=== PATIENT | female | born 1955 | race Caucasian/White ===

== ENCOUNTER → 2019-02-20 14:03 | Outpatient (CLI) | payer OTHER, SELFPAY ==
--- NOTE | 2019-02-20 | DI.MG.S_ITS ---
BILATERAL DIGITAL SCREENING MAMMOGRAM 3D/2D WITH CAD: 02/20/2019 CLINICAL: Routine screening. Family history of breast cancer. Comparison is made to exams dated: 07/08/2015 mammogram, 03/08/2011 mammogram, 07/01/2009 mammogram, and 11/14/2006 mammogram - [facility]. There are scattered fibroglandular elements in both breasts. Current study was also evaluated with a Computer Aided Detection (CAD) system. There are benign vascular calcifications in both breasts. No significant masses, calcifications, or other findings are seen in either breast. There has been no significant interval change. IMPRESSION: There is no mammographic evidence of malignancy. A 1 year screening mammogram is recommended. This exam was interpreted at Station ID: [id number]. NOTE: For mammograms, a report in lay terms will be sent to the patient. Approximately 15% of breast malignancies will not be visualized mammographically. In the management of a palpable breast mass, a negative mammogram must not discourage biopsy of a clinically suspicious lesion. Electronically Signed By: Ming mejia/windy:02/21/2019 10:31:35 letter sent: Normal Exam ACR BI-RADS Category 2: Benign Finding(s) 3342F
== END ==
PROVIDERS: PCP Internal Medicine; Visit Provider Internal Medicine
DX: Z12.31 Encounter for screening mammogram for malignant neoplasm of breast (principal); Z80.3 Family history of malignant neoplasm of breast; M81.0 Age-related osteoporosis without current pathological fracture; M85.88 Other specified disorders of bone density and structure, other site
CPT/HCPCS: 77063; 77067; 77080

== ENCOUNTER 2019-08-17 13:57 | Emergency (ER) | payer OTHER, SELFPAY ==
[2019-08-17 14:05] VITALS: BP 179/82; PULSE 83; RESP 24; TEMP 36.7; O2SAT 95
[2019-08-17] MEDS: ONDANSETRON 4 MG/2 ML INJ IV (14:22)
[2019-08-17] MEDS: KETOROLAC 60 MG/2 ML VIAL 30 MG IV (14:22)
[2019-08-17] MEDS: SODIUM CHLORIDE 0.9% 1,000 ML 1000 ML IV ×2 (14:22→16:51)
[2019-08-17 14:25] LABS: Add Manual Diff / Slide Review NO; Basophils Absolute Auto 0 /uL (0-100); Basophils Percent Auto 0.2 % (0-2); Eosinophils Absolute Auto 0 /uL (0-450); Eosinophils Percent Auto 0.2 % (2-4); Hematocrit 33.9 % (36-46); Hemoglobin 11.7 g/dL (12.0-16.0); Lymphocytes Absolute Auto 1000 /uL (1100-4500); Mean Corpuscular HGB Conc 34.5 % (30-36); Mean Corpuscular Hemoglobin 28.2 PG (26-34); Mean Corpuscular Volume 81.8 fL (80-100); Monocytes Absolute Auto 400 /uL (0-900); Neutrophils Absolute Auto 8300 /uL (1500-7000); Neutrophils Percent Auto 85.6 % (50-75); Platelet Count 311 X10^3/uL (150-400); Red Blood Cell Count 4.15 X10^6/uL (4.0-5.2); Red Cell Distribution Width 13.2 % (11.6-14.8); White Blood Cell Count 9.7 X10^3/uL (4.5-11.0)
[2019-08-17 14:39] LABS: INR 1.1 (0.9-1.3); Prothrombin Time 13.1 SECONDS (10.1-12.7)
[2019-08-17 14:41] LABS: PTT Partial Thromboplastin Tim 31 SECONDS (26.4-36.2)
[2019-08-17 14:43] LABS: Alanine Aminotransferase 31 IU/L (<35); Albumin 4.9 g/dL (3.5-5.0); Albumin Globulin Ratio 1.3 (1.0-2.8); Alkaline Phosphatase 38 U/L (38-126); Aspartate Aminotransferase 39 IU/L (14-36); BUN Creatinine Ratio 24.3 (6-22); Bilirubin Total 0.7 mg/dL (0.2-1.3); Blood Urea Nitrogen 17 mg/dL (7-17); Calcium 10.1 mg/dL (8.4-10.2); Carbon Dioxide 24 mmol/L (22-32); Chloride 103 mmol/L (98-107); Estimated Glomerular Filt Rate > 60.0 mL/min (>60); Globulin 3.9 g/dL (1.7-4.1); Glucose 139 mg/dL (80-110); Lipase 55 U/L (23-300); Potassium 4.2 mmol/L (3.4-5.1); Sodium 140 mmol/L (137-145); Total Protein 8.8 g/dL (6.3-8.2)
[2019-08-17 14:51] VITALS: BP 159/78; PULSE 78; RESP 14; O2SAT 99
[2019-08-17 14:55] LABS: HEMOLYSIS 68 (0-50)
--- NOTE | 2019-08-17 14:58 | ED.ABDPAIN ---
HPI - Abdominal Pain General Chief Complaint: Abdominal Pain Stated Complaint: stomach pains puking up and blood in urine yesturd Time Seen by Provider: 08/17/19 14:53 Source: patient Mode of arrival: Ambulatory Limitations: no limitations History of Present Illness HPI narrative: Patient is a 63-year-old female who presents with severe left flank pain. She said she started to notice it about a week ago it comes and goes she is extremely nauseous to radiating down to her left groin. Today the pain was quite bad. She has not had any fever or chills. She has noted some blood in her urine. MD complaint: flank pain Onset (ago): day(s) Pain Consistency: intermittent Severity: moderate Related Data Home Medications Medication Instructions Recorded Confirmed Calcium Tab 1 tab PO BID 08/17/19 08/17/19 Fish Oil 1 cap PO DAILY 08/17/19 08/17/19 Vitamin D3 1 cap PO DAILY 08/17/19 08/17/19 atorvastatin 10 mg PO DAILY 08/17/19 08/17/19 multivitamin 1 tab PO DAILY 08/17/19 08/17/19 turmeric 1 tab PO DAILY 08/17/19 08/17/19 Previous Rx's Medication Instructions Recorded Zostavax (PF) 0.5 ml SQ ONCE #0.5 ml 11/06/16 hydrocodone-acetaminophen 1 tab PO Q6H PRN #10 tab 08/17/19 ondansetron 4 mg PO Q8H PRN #10 tab 08/17/19 sulfamethoxazole-trimethoprim 1 tab PO BID 5 Days #10 tab 08/17/19 [Bactrim DS] tamsulosin [Flomax] 0.4 mg PO DAILY #7 cap 08/17/19 Allergies Allergy/AdvReac Type Severity Reaction Status Date / Time No Known Drug Allergies Allergy Verified 08/17/19 14:08 Review of Systems Review of Systems Narrative: GENERAL: Denies chills, fatigue, malaise, fever, sweats, travel HEENT: Denies sinus pain, ear pain, sore throat, difficulty swallowing, neck pain RESPIRATORY: Denies dyspnea, cough, wheezing, hemoptysis, sputum. CARDIOVASCULAR: Denies chest pain, palpitations, orthopnea, edema GASTROINTESTINAL: Denies nausea, vomiting, abdominal pain, diarrhea, constipation, melena. : See HPI MUSCULOSKELETAL: Denies weakness, joint pain, or bony pain SKIN: No rash, no erythema, no pruritus NEUROLOGIC: Denies weakness, dizziness, headache, numbness, change in speech, confusion PSYCHIATRIC: No concerning psychosocial issues. 12 point review of systems is negative except for those stated above and HPI Patient History Medical History History of hyperlipidemia (06/07/15) Social History Smoking Status: Former smoker Smoking Status: Former smoker alcohol intake frequency: 0-2 drinks per day Substance Use Type: does not use Exam Initial Vital Signs Initial Vital Signs: Vital Signs Temperature 98.1 F 08/17/19 14:05 Pulse Rate 83 08/17/19 14:05 Respiratory Rate 24 08/17/19 14:05 Blood Pressure 179/82 H 08/17/19 14:05 Pulse Oximetry 95 08/17/19 14:05 GENERAL: Well-appearing, well-nourished and in no acute distress. HEENT: Head atraumatic,EOMI, pupils reactive, face symmetric, moist mucous membranes CARDIOVASCULAR: Regular rate and rhythm without murmurs, rubs or gallops. RESPIRATORY: Breath sounds equal bilaterally, no wheezes rales or rhonchi. ABDOMEN: Soft, left lower quadrant pain no guarding or rebound : Pain meds mild left CVA tenderness EXTREMITIES: Normal range of motion, no clubbing or edema. Neurovascularly intact NEUROLOGICAL: Alert and oriented x4.Normal gait and speech. Cranial nerves II through XII grossly intact. SKIN: Warm, dry, no laceration, no petechiae, no rashes or lesions. Course Orders Ordered: ED Orders 08/17/19 14:18 Complete Blood Count AUTO DIFF Stat Comprehensive Metabolic Panel Stat Lipase Stat Partial Thromboplastin Time Stat Prothrombin Time INR Stat 08/17/19 15:07 CT kidney ureter bladder (KUB) Stat 08/17/19 16:45 Urine Culture Stat Urine Microscopic Stat Discontinued Medications Acetaminophen (Tylenol) 975 mg PO NOW ONE Stop: 08/17/19 17:48 Last Admin: 08/17/19 17:49 Dose: 975 mg Documented by: MESSI Sodium Chloride (Normal Saline 0.9%) 1,000 mls @ 1,000 mls/hr IV BOLUS ONE Stop: 08/17/19 15:09 Last Infusion: 08/17/19 15:51 Dose: 0 mls/hr Documented by: Admin: 08/17/19 14:22 Dose: 1,000 mls/hr Documented by: MESSI Sodium Chloride (Normal Saline 0.9%) 1,000 mls @ 1,000 mls/hr IV BOLUS ONE Stop: 08/17/19 17:13 Last Infusion: 08/17/19 18:24 Dose: 0 mls/hr Documented by: Admin: 08/17/19 16:51 Dose: 1,000 mls/hr Documented by: MESSI Ketorolac Tromethamine (Toradol) 30 mg IV NOW ONE Stop: 08/17/19 14:11 Last Admin: 08/17/19 14:22 Dose: 30 mg Documented by: MESSI Ondansetron HCl (Zofran) 4 mg IV NOW ONE Stop: 08/17/19 14:10 Last Admin: 08/17/19 14:22 Dose: 4 mg Documented by: MESSI Consultations Consultation #1: Manav Time: 16:43 Vital Signs Vital signs: Vital Signs - 8 hr 08/17/19 14:05 08/17/19 14:51 08/17/19 16:30 Temperature 98.1 F Pulse Rate 83 78 71 Respiratory Rate 24 14 12 Blood Pressure 179/82 H Blood Pressure [Left Arm] 159/78 H 146/81 H Pulse Oximetry 95 99 98 08/17/19 17:37 08/17/19 18:45 Temperature Pulse Rate 64 68 Respiratory Rate 18 18 Blood Pressure 141/68 H Blood Pressure [Left Arm] 146/55 H Pulse Oximetry 98 100 MDM - Abdominal Pain Lab Data Attestation: I reviewed the patient's lab results. Result diagrams: 08/17/19 14:18 08/17/19 14:18 Labs: Lab Results 08/17/19 08/17/19 08/17/19 Range/Units 14:18 14:18 14:18 WBC 9.7 (4.5-11.0) X10^3/uL RBC 4.15 (4.0-5.2) X10^6/uL Hgb 11.7 L (12.0-16.0) g/dL Hct 33.9 L (36-46) % MCV 81.8 (80-100) fL MCH 28.2 (26-34) PG MCHC 34.5 (30-36) % RDW 13.2 (11.6-14.8) % Plt Count 311 (150-400) X10^3/uL Neut % (Auto) 85.6 H (50-75) % Lymph % (Auto) 10.0 L (25-40) % [place] % (Auto) 4.0 (3-14) % Eos % (Auto) 0.2 L (2-4) % Baso % (Auto) 0.2 (0-2) % Neut # (Auto) 8300 H (5153-7013) /uL Lymph # (Auto) 1000 L (3724-8692) /uL [place] # (Auto) 400 (0-900) /uL Eos # (Auto) 0 (0-450) /uL Baso # (Auto) 0 (0-100) /uL PT 13.1 H (10.1-12.7) SECONDS INR 1.1 (0.9-1.3) APTT 31 (26.4-36.2) SECONDS Sodium 140 (137-145) mmol/L Potassium 4.2 (3.4-5.1) mmol/L Chloride 103 (98-107) mmol/L Carbon Dioxide 24 (22-32) mmol/L BUN 17 (7-17) mg/dL Creatinine 0.70 (0.52-1.04) mg/dL Estimated GFR > 60.0 (>60) mL/min BUN/Creatinine Ratio 24.3 H (6-22) Glucose 139 H (80-110) mg/dL Calcium 10.1 (8.4-10.2) mg/dL Total Bilirubin 0.7 (0.2-1.3) mg/dL AST 39 H (14-36) IU/L ALT 31 (<35) IU/L Alkaline Phosphatase 38 (38-126) U/L Total Protein 8.8 H (6.3-8.2) g/dL Albumin 4.9 (3.5-5.0) g/dL Globulin 3.9 (1.7-4.1) g/dL Albumin/Globulin Ratio 1.3 (1.0-2.8) Lipase 55 (23-300) U/L Urine RBC (0-5/HPF) Urine WBC (0-5/HPF) Ur Squamous Epith Cells (0-5/HPF) Calcium Oxalate Crystal Amorphous Sediment Urine Bacteria (None) Ur Culture Indicated? 08/17/19 Range/Units 16:45 WBC (4.5-11.0) X10^3/uL RBC (4.0-5.2) X10^6/uL Hgb (12.0-16.0) g/dL Hct (36-46) % MCV (80-100) fL MCH (26-34) PG MCHC (30-36) % RDW (11.6-14.8) % Plt Count (150-400) X10^3/uL Neut % (Auto) (50-75) % Lymph % (Auto) (25-40) % [place] % (Auto) (3-14) % Eos % (Auto) (2-4) % Baso % (Auto) (0-2) % Neut # (Auto) (6338-7843) /uL Lymph # (Auto) (8402-6885) /uL [place] # (Auto) (0-900) /uL Eos # (Auto) (0-450) /uL Baso # (Auto) (0-100) /uL PT (10.1-12.7) SECONDS INR (0.9-1.3) APTT (26.4-36.2) SECONDS Sodium (137-145) mmol/L Potassium (3.4-5.1) mmol/L Chloride (98-107) mmol/L Carbon Dioxide (22-32) mmol/L BUN (7-17) mg/dL Creatinine (0.52-1.04) mg/dL Estimated GFR (>60) mL/min BUN/Creatinine Ratio (6-22) Glucose (80-110) mg/dL Calcium (8.4-10.2) mg/dL Total Bilirubin (0.2-1.3) mg/dL AST (14-36) IU/L ALT (<35) IU/L Alkaline Phosphatase (38-126) U/L Total Protein (6.3-8.2) g/dL Albumin (3.5-5.0) g/dL Globulin (1.7-4.1) g/dL Albumin/Globulin Ratio (1.0-2.8) Lipase (23-300) U/L Urine RBC 10-30/hpf H (0-5/HPF) Urine WBC 5-10/hpf H (0-5/HPF) Ur Squamous Epith Cells 1-5 /hpf (0-5/HPF) Calcium Oxalate Crystal Few H Amorphous Sediment 2+ Urine Bacteria Few (2-10) H (None) Ur Culture Indicated? Specimen cultured Point of care testing: Urine Dip Bedside Urine Glucose Negative Bedside Urine Bilirubin - Negative Bedside Urine Ketone ++ 40 Urine Specific [place] 1.015 Bedside Urine Occult Blood +++ Bedside Urine pH 7.0 Bedside Urine Protein + 30 Bedside Urine Urobilinogen - Negative Bedside Urine Nitrite - Negative Bedside Urine Leukocytes ++ [address] scan - abdomen/pelvis: Radiologist's Impression: PROCEDURE: CT KIDNEY URETER BLADDER (KUB) INDICATIONS: left flank pain TECHNIQUE: Noncontrast 5 mm thick sections acquired from the diaphragms to the symphysis. 5 mm thick coronal and sagittal reformats were then performed. For radiation dose reduction, the following was used: automated exposure control, adjustment of mA and/or kV according to patient size. COMPARISON: [facility], , CT IVP, 02/15/2006, 10:46. FINDINGS: Image quality: Excellent. Lung bases: Lung bases are clear. Heart size is normal. Urinary system: Right kidney: No stone or hydronephrosis. Right ureter: Unremarkable. Left kidney: Hyperdensity in lower pole renal calyces is consistent with acute hemorrhage. Cannot exclude underlying lesion. Mild to moderate left hydronephrosis. Inflammatory change in the surrounding perirenal fat. Left ureter: Dilated to the level of the distal ureter above the ureterovesical junction. There is an obstructing 0.6 x 1.1 cm distal ureteral stone. Bladder has a thin wall without bladder stones. Other solid organs: Liver is normal in size. Gallbladder is unremarkable. Pancreas is normal in contours. Spleen is normal in size. Benign unchanged multiseptated partially calcified cystic lesion of the spleen. No adrenal nodules. Peritoneum and bowel: Unenhanced bowel loops demonstrate normal wall thickness and caliber. No free fluid or air. Sigmoid diverticulosis without evidence of diverticulitis. Nodes and vessels: No retroperitoneal or mesenteric adenopathy by size criteria. Aorta and inferior vena cava are normal in caliber. Abdominal wall: No ventral hernias. Pelvis: No free pelvic fluid. No inguinal hernias or adenopathy. Bones: No suspicious bony lesions. No vertebral body compression fractures. IMPRESSION: 1. A 6 x 11 mm stone obstructs the distal right ureter resulting in mild to moderate right hydronephrosis. 2. Products of hemorrhage in right lower pole calyces. 3. Sigmoid diverticulosis. Dictated by: Stephon Coburn M.D. on 08/17/2019 at 15:55 MDM Narrative Medical decision making narrative: Patient evaluated after Toradol pain seemed to improve. Patient is found to have large kidney stone. She actually has no sign of renal failure creatinine is within normal limits she has no leukocytosis. Pain remained controlled with just Toradol I will put her on antibiotics pain medication and nausea medication spoken with her PCP who agreed to arrange the out patient follow-up. I discussed all findings with the patient and , Education has been performed regarding treatment plan, diagnosis, warning signs and symptoms and all concerns have been addressed. Verbally agree with and understood all of the above. Discharge Plan Departure Patient Disposition: Home Clinical Impression: Kidney stone on left side Discharge Date/Time: 08/17/19 18:46 Instructions: DI for Kidney Stones Activity Restrictions/Additional Instructions: *You have been diagnosed with left-sided kidney stone *What to do: You will need to follow-up with urology it is unlikely that you will pass this kidney stone on your own. I have discussed this with the on-call primary care provider who was putting in consultation for you. *Continue to take medications as directed Dulac 1 tablet every 6 hours if needed for severe pain Ibuprofen 800 mg every 8 hours if needed for bfwe-iu-gatjwmol pain Zofran 4 mg every 8 hours if needed for nausea or vomiting Bactrim 1 tablet twice a day for 7 days Flomax 1 tablet once a day to help passage of stone *Follow up with your primary care provider in 2-3 days *Return to ER if you should have increasing pain and fevers persistent vomiting inability to tolerate fluids or any new, worsening or concerning symptoms CONTROLLED SUBSTANCE DISCHARGE (Narcotoic/benzodiazepine/Flexeril/Phenergan) 1. You have been prescribed narcotic medications, it does have acetaminophen/Tylenol/paracetamol in it so do not take extra Tylenol or Tylenol containing products 2. Please understand that we cannot provide further refills of narcotics, benzodiazepines or controlled substances through the ED and her pain management will need to be through your provider. 3. While on these medications you cannot drive or operate heavy machinery. 4. You cannot sign legal documents or perform any duties such as this. 5. As long as you're taking opiate pain medications he should also be taking a stool softener such as Colace, Dulcolax, MiraLAX or prune juice, to help avoid constipation. Prescriptions: New hydrocodone-acetaminophen 5-325 mg tablet 1 tab PO Q6H PRN (Reason: pain) Qty: 10 RF: 0 sulfamethoxazole-trimethoprim [Bactrim DS] 800-160 mg tablet 1 tab PO BID 5 Days Qty: 10 RF: 0 ondansetron 4 mg tablet,disintegrating 4 mg PO Q8H PRN (Reason: nausea and vomiting) Qty: 10 RF: 0 tamsulosin [Flomax] 0.4 mg capsule,extended release 24hr 0.4 mg PO DAILY Qty: 7 RF: 0 No Action Zostavax (PF) 19,400 UNIT/0.65 ML suspension for reconstitution 0.5 ml SQ ONCE Qty: 0.5 RF: 0 atorvastatin 10 mg tablet 10 mg PO DAILY RF: 0 multivitamin Tablet 1 tab PO DAILY RF: 0 Calcium Tab 1 tab PO BID RF: 0 Fish Oil 1 cap PO DAILY RF: 0 Vitamin D3 1 cap PO DAILY RF: 0 turmeric 1 tab PO DAILY RF: 0 Referrals: Josefina Rush ARNP [Primary Care Provider] -
--- NOTE | 2019-08-17 15:07 | DI.CT.S_ITS ---
PROCEDURE: CT KIDNEY URETER BLADDER (KUB) INDICATIONS: left flank pain TECHNIQUE: Noncontrast 5 mm thick sections acquired from the diaphragms to the symphysis. 5 mm thick coronal and sagittal reformats were then performed. For radiation dose reduction, the following was used: automated exposure control, adjustment of mA and/or kV according to patient size. COMPARISON: [facility], , CT IVP, 02/15/2006, 10:46. FINDINGS: Image quality: Excellent. Lung bases: Lung bases are clear. Heart size is normal. Urinary system: Right kidney: No stone or hydronephrosis. Right ureter: Unremarkable. Left kidney: Hyperdensity in lower pole renal calyces is consistent with acute hemorrhage. Cannot exclude underlying lesion. Mild to moderate left hydronephrosis. Inflammatory change in the surrounding perirenal fat. Left ureter: Dilated to the level of the distal ureter above the ureterovesical junction. There is an obstructing 0.6 x 1.1 cm distal ureteral stone. Bladder has a thin wall without bladder stones. Other solid organs: Liver is normal in size. Gallbladder is unremarkable. Pancreas is normal in contours. Spleen is normal in size. Benign unchanged multiseptated partially calcified cystic lesion of the spleen. No adrenal nodules. Peritoneum and bowel: Unenhanced bowel loops demonstrate normal wall thickness and caliber. No free fluid or air. Sigmoid diverticulosis without evidence of diverticulitis. Nodes and vessels: No retroperitoneal or mesenteric adenopathy by size criteria. Aorta and inferior vena cava are normal in caliber. Abdominal wall: No ventral hernias. Pelvis: No free pelvic fluid. No inguinal hernias or adenopathy. Bones: No suspicious bony lesions. No vertebral body compression fractures. IMPRESSION: 1. A 6 x 11 mm stone obstructs the distal right ureter resulting in mild to moderate right hydronephrosis. 2. Products of hemorrhage in right lower pole calyces. 3. Sigmoid diverticulosis. Dictated by: Stephon Coburn M.D. on 08/17/2019 at 15:55 Approved by: Stephon Coburn M.D. on 08/17/2019 at 16:09
[2019-08-17 16:30] VITALS: BP 146/81; PULSE 71; RESP 12; O2SAT 98
[2019-08-17 17:19] LABS: Amorphous Sediment Urine 2+; Bacteria Urine Few (2-10); Calcium Oxalate Crystals Urine Few; Culture Indicated Urine Specimen Cultured; RBC Urine 10-30/HPF (0-5/HPF); Squamous Epithelial Cell Urine 1-5 /HPF (0-5/HPF); WBC Urine 5-10/HPF (0-5/HPF)
[2019-08-17 17:37] VITALS: BP 146/55; PULSE 64; RESP 18; O2SAT 98
[2019-08-17] MEDS: ACETAMINOPHEN 325 MG TABLET 975 MG PO (17:49)
[2019-08-17 18:45] VITALS: BP 141/68; PULSE 68; RESP 18; O2SAT 100
== END 2019-08-17 18:46 | disposition home or self-care (01) ==
PROVIDERS: Emergency Provider Emergency Medicine; PCP Internal Medicine
DX: N20.0 Calculus of kidney (principal)
CPT/HCPCS: 36415; 74176; 80053; 81003; 81015; 83690; 85025; 85610; 85730; 87086; 96361; 96374; 96375; 99284; J1885; J2405

== ENCOUNTER → 2020-04-21 12:08 | Outpatient (CLI) | payer OTHER, SELFPAY ==
--- NOTE | 2020-04-21 12:28 | DI.MG.S_ITS ---
Patient Name: ALEX CASEY date: 1955 Sex: F Attending Physician: Adri Indications: Date: 04/21/2020 12:35 At the request of: TERRI CRANDALL Procedure: MM screening mammo BI BILATERAL DIGITAL SCREENING MAMMOGRAM 3D/2D WITH CAD: 04/21/2020 CLINICAL: Routine screening. Family history of breast cancer. Comparison is made to exams dated: 02/20/2019 mammogram, 07/08/2015 mammogram, and 03/08/2011 mammogram - [facility]. There are scattered fibroglandular elements in both breasts. Current study was also evaluated with a Computer Aided Detection (CAD) system. There are benign vascular calcifications in both breasts. No significant masses, calcifications, or other findings are seen in either breast. There has been no significant interval change. IMPRESSION: BENIGN There is no mammographic evidence of malignancy. A 1 year screening mammogram is recommended. This exam was interpreted at Station ID: [id number]. NOTE: For mammograms, a report in lay terms will be sent to the patient. Approximately 15% of breast malignancies will not be visualized mammographically. In the management of a palpable breast mass, a negative mammogram must not discourage biopsy of a clinically suspicious lesion. Electronically Signed By: Win hernandez/windy:04/21/2020 15:59:26 letter sent: Normal Exam ACR BI-RADS Category 2: Benign Finding(s) 3342F
== END ==
PROVIDERS: PCP Internal Medicine; Referring Provider Internal Medicine; Visit Provider Internal Medicine
DX: Z12.31 Encounter for screening mammogram for malignant neoplasm of breast (principal); Z80.3 Family history of malignant neoplasm of breast
CPT/HCPCS: 77063; 77067

== ENCOUNTER → 2020-05-24 13:27 | Outpatient (CLI) | payer OTHER, SELFPAY ==
[2020-05-26 08:38] LABS: COVID19 Sendout Not Detected (Not Detect)
== END ==
PROVIDERS: PCP Internal Medicine; Visit Provider Physician Assistant
DX: Z11.59 Encounter for screening for other viral diseases (principal)
CPT/HCPCS: 87635

== ENCOUNTER 2020-05-27 13:30 | Day surgery (SDC) | payer OTHER, SELFPAY ==
--- NOTE | 2020-05-27 11:49 | P.HP_ITS ---
History of Present Illness History of Present Illness Date Patient Seen: 05/27/20 Chief complaint: SCREENING COLONOSCOPY Narrative: 64 year old female comes in today for consideration of a screening colonoscopy. One previous colonoscopy over 10 years ago secondary to concern for possible diverticulitis. No diverticulitis or diverticulosis found per patient, she did have an inflamed colon. Negative FIT test on 02/20/2019. There have otherwise been no lower GI symptoms suggesting disease such as change in bowel habits, bleeding, abdominal pain or anemia. There's been no family history of colon cancer or colon polyps. Overall health issues have been stable, including no major cardiac events for at least 6 weeks. PCP: PREMA Yao Past history: Hyperlipidemia Obesity Kidney stone Osteopenia Postmenopausal [place] tenosynovitis Past surgical history: Parotid gland removal [place] teeth Family history: Father: Emphysema Mother: Breast cancer Social history: . Retired employment security officer. Patient History Medical History (Updated 09/01/19 @ 00:01 by ) History of hyperlipidemia (06/07/15) Family & Social History Tobacco & Substance use: Smoking Status Former smoker alcohol intake frequency 0-2 drinks per day Substance Use Type does not use Meds Home Medications and Allergies Home Medications Medication Instructions Recorded Confirmed Type Zostavax (PF) 0.5 ml SQ ONCE #0.5 ml 11/06/16 08/17/19 Rx Calcium Tab 1 tab PO BID 08/17/19 08/17/19 History Fish Oil 1 cap PO DAILY 08/17/19 08/17/19 History Vitamin D3 1 cap PO DAILY 08/17/19 08/17/19 History atorvastatin 10 mg PO DAILY 08/17/19 05/27/20 History multivitamin 1 tab PO DAILY 08/17/19 05/27/20 History turmeric 1 tab PO DAILY 08/17/19 08/17/19 History Allergies Allergy/AdvReac Type Severity Reaction Status Date / Time No Known Drug Allergies Allergy Verified 05/27/20 13:48 Review of Systems Review of Systems ROS: Yes All systems reviewed with the patient and are negative except as otherwise documented Exam Narrative Exam Narrative: GENERAL: Alert and oriented, appearing stated age and in no acute distress. HEENT: Head normocephalic/atraumatic. Pupils equal, round, and reactive to light and accomodation. Extraocular muscles intact. Tympanic membranes clear. Nasal mucosa moist, septum midline. Oral mucosa moist, no lesions. Neck soft and supple, no lymphadenopathy. LUNGS: Clear to ausculation bilaterally, no wheezes, rhonchi or rales. CV: Normal S1 and S2 with regular rate and rhythm, no audible murmurs, rubs or gallops. ABDOMEN: Soft, non-tender, non-distended, no organomegaly. Positive bowel sounds. EXTREMITIES: No clubbing, cyanosis, or edema. NEURO: Cranial nerves II through XII grossly intact, no focal deficits. PSYCH: Alert and oriented x 3. SKIN: No concerning lesions. Assessment & Plan Assessment & Plan narrative: 1. Screening for colon cancer Plan for colonoscopy. The nature and character of the procedure as well as anticipated results were discussed. The possibility of not completing the procedure was also discussed. Possible complications including aspiration pneumonia, bleeding, perforation and reaction to medications either for sedation or preparation and missed lesions were discussed. Questions were answered and proceeding to the colonoscopy was elected. Informed consent signed. I sincerely appreciate the referral allowing me to participate in this patient's care. Please contact me with any questions or concerns.
--- NOTE | 2020-05-27 11:52 | PM.OP.ENDO ---
Operative Date/Time/Diagnoses Date of procedure: 05/27/20 Procedure Notes SCOAP/Timeout: 1:57 p.m. Procedure in detail: ENDOSCOPIST: Genevieve Ham MD Sedation RN: Marshal Felming RN Sedation start time: 4:38 p.m. Sedation end time: 4:05 p.m. PROCEDURE: Colonoscopy INDICATIONS: 1. Screening for colon cancer MEDICATION: Levsin 0.125 mg sublingual, incremental doses of Versed and fentanyl until appropriate level sedation achieved. ASA CLASS: 2 CECAL WITHDRAWAL TIME: 7 minutes COMPLICATIONS: None. EXTENT OF PROCEDURE: Cecum. QUALITY OF PREP: Good with portions of liquid stool. PROCEDURE: Prior to insertion of the colonoscope, a digital rectal examination was accomplished with circumferential palpation of the distal rectal mucosa without significant findings being noted. The high-definition colonoscope was passed into the rectum in the usual fashion and advanced over to the cecum without difficulty. The ileocecal valve, appendiceal stoma, and medial wall all could be inspected and no abnormalities were seen. ASCENDING COLON: As the colonoscope was withdrawn, care was taken to expose and inspect the haustral folds and no abnormalities were seen. HEPATIC FLEXURE: Normal, no polyps, diverticula or other abnormalities. TRANSVERSE COLON: Normal, no polyps, diverticula or other abnormalities. DESCENDING COLON: Normal, no polyps, diverticula or other abnormalities. SIGMOID COLON: Minor diverticulosis, otherwise, normal, no polyps or other abnormalities. RECTUM: Normal. J maneuver was produced. There was no significant perianal disease. The J maneuver was broken. The remainder of the rectum was inspected and there was no external hemorrhoid disease. The scope was withdrawn. IMPRESSION: 1. Normal colonoscopy 2. Sigmoid diverticulosis PLAN: 1. Repeat colonoscopy in 10 years. The possibility of a missed lesion including a malignancy has been discussed with the patient previously. Potential alarm symptoms have been discussed and should be reported immediately.
[2020-05-27 13:51] VITALS: BMI 29.2
[2020-05-27 14:07] VITALS: BP 113/69; PULSE 86; RESP 12; TEMP 37.7; O2SAT 95
[2020-05-27] MEDS: HYOSCYAMINE 0.125 MG TABLET PO (14:10)
[2020-05-27] MEDS: LACTATED RINGERS 1,000 ML 200 ML IV (14:10)
[2020-05-27 14:22] VITALS: TEMP 37.8
[2020-05-27 14:52] LABS: COVID19 -Nasal RAPID Negative (Negative)
[2020-05-27] MEDS: MIDAZOLAM 5 MG/5 ML VIAL IV (15:38)
[2020-05-27] MEDS: fentaNYL 250 MCG/5 ML INJ IV (15:38)
[2020-05-27 16:11] VITALS: BP 107/52; PULSE 84; RESP 15; TEMP 37; O2SAT 97
[2020-05-27 16:15] VITALS: BP 99/62; PULSE 66; RESP 10; O2SAT 96
[2020-05-27 16:19] VITALS: BP 107/74; PULSE 97; RESP 15; O2SAT 96
[2020-05-27 16:38] VITALS: BP 113/71; PULSE 77; RESP 12; TEMP 36.8; O2SAT 96
== END 2020-05-27 16:45 | disposition home or self-care (01) ==
PROVIDERS: PCP Internal Medicine; Referring Provider Student in an Organized Health Care Education/Training Program; Visit Provider Student in an Organized Health Care Education/Training Program
PROC: 0DJD8ZZ Inspection of Lower Intestinal Tract, Via Natural or Artificial Opening Endoscopic (ICD-10-PCS; CPT 45378; principal; 2020-05-27 14:30)
DX: Z12.11 Encounter for screening for malignant neoplasm of colon (principal); K57.30 Diverticulosis of large intestine without perforation or abscess without bleeding; Z11.59 Encounter for screening for other viral diseases
CPT/HCPCS: G0105; 87635; J2250; J3010

== ENCOUNTER → 2021-04-24 14:58 | Outpatient (CLI) | payer OTHER, SELFPAY ==
--- NOTE | 2021-04-24 | DI.MG.S_ITS ---
BILATERAL DIGITAL SCREENING MAMMOGRAM 3D/2D WITH CAD: 04/24/2021 CLINICAL: Routine screening. Family history of breast cancer. Comparison is made to exams dated: 04/21/2020 mammogram, 02/20/2019 mammogram, and 07/08/2015 mammogram - [facility]. There are scattered fibroglandular elements in both breasts. Current study was also evaluated with a Computer Aided Detection (CAD) system. There are benign vascular calcifications in both breasts. No significant masses, calcifications, or other findings are seen in either breast. There has been no significant interval change. IMPRESSION: BENIGN There is no mammographic evidence of malignancy. A 1 year screening mammogram is recommended. This exam was interpreted at Station ID: [id number]. NOTE: For mammograms, a report in lay terms will be sent to the patient. Approximately 15% of breast malignancies will not be visualized mammographically. In the management of a palpable breast mass, a negative mammogram must not discourage biopsy of a clinically suspicious lesion. Electronically Signed By: Leoncio beltre/windy:04/24/2021 16:53:17 letter sent: Normal Exam ACR BI-RADS Category 2: Benign Finding(s) 3342F
== END ==
PROVIDERS: PCP Internal Medicine; Referring Provider Internal Medicine; Visit Provider Internal Medicine
DX: Z12.31 Encounter for screening mammogram for malignant neoplasm of breast (principal); Z80.3 Family history of malignant neoplasm of breast; M85.852 Other specified disorders of bone density and structure, left thigh; Z78.0 Asymptomatic menopausal state
CPT/HCPCS: 77063; 77067; 77080

== ENCOUNTER → 2022-04-26 11:55 | Outpatient (CLI) | payer OTHER, SELFPAY ==
--- NOTE | 2022-04-26 | DI.MG.S_ITS ---
BILATERAL DIGITAL SCREENING MAMMOGRAM 3D/2D WITH CAD: 04/26/2022 CLINICAL: Routine screening. Family history of breast cancer. Comparison is made to exams dated: 04/24/2021 mammogram, 04/21/2020 mammogram, and 02/20/2019 mammogram - . There are scattered areas of fibroglandular density in both breasts (category b / 25%-50% glandular tissue). Current study was also evaluated with a Computer Aided Detection (CAD) system. There are benign vascular calcifications in both breasts. No significant masses, calcifications, or other findings are seen in either breast. There has been no significant interval change. IMPRESSION: BENIGN There is no mammographic evidence of malignancy. A 1 year screening mammogram is recommended. Based on the Tyrer Cuzick model (a risk assessment model) the patient's lifetime risk is 12.0% and her 10 year risk is 6.7%. According to the ACR, ACS, and NCCN guidelines, an annual breast MRI exam along with mammogram is recommended if the patient's lifetime risk is 20% or greater. This exam was interpreted at Station ID: [id number]. NOTE: For mammograms, a report in lay terms will be sent to the patient. Approximately 15% of breast malignancies will not be visualized mammographically. In the management of a palpable breast mass, a negative mammogram must not discourage biopsy of a clinically suspicious lesion. Electronically Signed By: Cintia burrows/windy:04/26/2022 12:17:56 letter sent: Normal Exam ACR BI-RADS Category 2: Benign Finding(s) 3342F
== END ==
PROVIDERS: PCP Internal Medicine; Referring Provider Internal Medicine; Visit Provider Internal Medicine
DX: Z12.31 Encounter for screening mammogram for malignant neoplasm of breast (principal); Z80.3 Family history of malignant neoplasm of breast
CPT/HCPCS: 77063; 77067

== ENCOUNTER → 2023-05-03 13:58 | Outpatient (CLI) | payer OTHER, SELFPAY ==
--- NOTE | 2023-05-03 | DI.RAD.S_ITS ---
Bone Density Report Name: ALEX CASEY Age: 67 Sex: Female Ethnicity: White Date of : 1955 Indication: osteopenia; Referring Provider: TERRI CRANDALL Study: Bone densitometry was performed. Exam Date: May 03, 2023 Accession number: [id number] Bone Density: Region BMD T-score Z-score Classification AP Spine(L1, L2, L3) 0.943 -0.7 1.3 Normal Femoral Neck (Left) 0.658 -1.7 0.1 Osteopenia Total Hip (Left) 0.822 -1.0 0.5 Normal Femoral Neck (Right) 0.709 -1.3 0.5 Osteopenia Total Hip (Right) 0.810 -1.1 0.4 Osteopenia Total Hip Mean 0.816 -1.1 0.5 Osteopenia World Health Organization criteria for BMD impression classify patients as: Normal (T-score at or above -1.0), Osteopenia (T-score between -1.0 and -2.5), or Osteoporosis (T-score at or below -2.5). 10-year Fracture Risk(1): Major Osteoporotic Fracture 10% Hip Fracture 1.6% Reported Risk Factors: [place] (), Neck BMD=0.658, BMI=30.7 (1) FRAX(R) Version 3.08. Fracture probability calculated for an untreated patient. Fracture probability may be lower if the patient has received treatment. Previous Exams: -- Region Exam Age BMD T-score BMD Change BMD Change Date g/cm2 vs Baseline vs Previous -- AP Spine (L1-L3) 05/03/2023 67 0.943 -0.7 0.005 (0.5%)# 0.005 (0.5%)# 04/24/2021 65 0.938 -0.7 Total Hip(Left) 05/03/2023 67 0.822 -1.0 -0.006 (-0.8%)# -0.006 (-0.8%)# 04/24/2021 65 0.828 -0.9 Total Hip(Right) 05/03/2023 67 0.810 -1.1 0.001 (0.2%)# 0.001 (0.2%)# 04/24/2021 65 0.808 -1.1 -- *Denotes significance at 95% confidence level, LSC for AP Spine = 0.022 g/cm2, LSC for Total Hip = 0.027 g/cm2 # Denotes dissimilar scan types or analysis methods Impression: The patient has low bone mass, based on the Left Femoral Neck T-score. The patient has an estimated ten-year risk of hip fracture of 1.6% and an estimated ten-year risk of major fracture of 10%, based on the WHO FRAX algorithm. No significant bone loss was observed. Discussion: BONE DENSITY IS LOW AT ONE OR MORE SKELETAL SITES. This patient's lowest T-score is low at one or more skeletal sites. It meets the World Health Organization's (WHO) criteria for low bone mass (T-score between -1.0 and -2.5). The patient's 10-year risk of fracture as calculated by FRAX is less than the threshold where pharmacological therapy is recommended by the National Osteoporosis Foundation (NOF). However, all treatment decisions require clinical judgment and consideration of individual patient factors, including patient preferences, comorbidities, previous drug use, risk factors not captured in the FRAX model (e.g., frailty, falls, vitamin D deficiency, increased bone turnover, interval significant decline in bone density) and possible under or overestimation of fracture risk by FRAX. The patient should follow a healthful lifestyle (good nutrition with adequate calcium and vitamin D, and appropriate weight-bearing exercise). Follow-Up: Consider repeating this study in 2 to 3 years to reassess this patient's status, or sooner if there is some new clinical indication. Reported by: CHAVEZ CASTILLO M.D. on 05/03/2023 2:28:00 PM.
--- NOTE | 2023-05-03 | DI.MG.S_ITS ---
BILATERAL DIGITAL SCREENING MAMMOGRAM 3D/2D WITH CAD: 05/03/2023 CLINICAL: Routine screening. Family history of breast cancer. Comparison is made to exams dated: 04/26/2022 mammogram, 04/24/2021 mammogram, and 04/21/2020 mammogram - [facility]. There are scattered areas of fibroglandular density in both breasts (category b / 25%-50% glandular tissue). Current study was also evaluated with a Computer Aided Detection (CAD) system. There are benign vascular calcifications in both breasts. No significant masses, calcifications, or other findings are seen in either breast. There has been no significant interval change. IMPRESSION: BENIGN There is no mammographic evidence of malignancy. A 1 year screening mammogram is recommended. Based on the Tyrer Cuzick model (a risk assessment model) the patient's lifetime risk is 11.3% and her 10 year risk is 6.8%. According to the ACR, ACS, and NCCN guidelines, an annual breast MRI exam along with mammogram is recommended if the patient's lifetime risk is 20% or greater. This exam was interpreted at Station ID: [id number]. NOTE: For mammograms, a report in lay terms will be sent to the patient. Approximately 15% of breast malignancies will not be visualized mammographically. In the management of a palpable breast mass, a negative mammogram must not discourage biopsy of a clinically suspicious lesion. Electronically Signed By: Leoncio beltre/windy:05/03/2023 16:09:27 letter sent: Normal Exam ACR BI-RADS Category 2: Benign Finding(s) 3342F
== END ==
PROVIDERS: PCP Internal Medicine; Referring Provider Internal Medicine; Visit Provider Internal Medicine
DX: Z78.0 Asymptomatic menopausal state (principal); Z12.31 Encounter for screening mammogram for malignant neoplasm of breast; Z80.3 Family history of malignant neoplasm of breast; M85.852 Other specified disorders of bone density and structure, left thigh
CPT/HCPCS: 77063; 77067; 77080

== ENCOUNTER → 2024-05-04 14:15 | Outpatient (CLI) | payer OTHER, SELFPAY ==
--- NOTE | 2024-05-04 14:17 | DI.MG.S_ITS ---
BILATERAL DIGITAL SCREENING MAMMOGRAM 3D/2D WITH CAD: 05/04/2024 CLINICAL: Routine screening. Family history of breast cancer. Comparison is made to exams dated: 05/03/2023 mammogram, 04/26/2022 mammogram, and 04/24/2021 mammogram - [facility]. There are scattered areas of fibroglandular density in both breasts (category b / 25%-50% glandular tissue). Current study was also evaluated with a Computer Aided Detection (CAD) system. There are benign vascular calcifications in both breasts. No significant masses, calcifications, or other findings are seen in either breast. There has been no significant interval change. IMPRESSION: BENIGN There is no mammographic evidence of malignancy. A 1 year screening mammogram is recommended. Based on the Tyrer Cuzick model (a risk assessment model) the patient's lifetime risk is 10.8% and her 10 year risk is 6.9%. According to the ACR, ACS, and NCCN guidelines, an annual breast MRI exam along with mammogram is recommended if the patient's lifetime risk is 20% or greater. This exam was interpreted at Station ID: [id number]. NOTE: For mammograms, a report in lay terms will be sent to the patient. Approximately 15% of breast malignancies will not be visualized mammographically. In the management of a palpable breast mass, a negative mammogram must not discourage biopsy of a clinically suspicious lesion. Electronically Signed By: Leoncio beltre/windy:05/04/2024 18:27:59 letter sent: Normal Exam ACR BI-RADS Category 2: Benign Finding(s) 3342F
== END ==
LOC: MAMMO 14:16
PROVIDERS: PCP Internal Medicine; Referring Provider Internal Medicine; Visit Provider Internal Medicine
DX: Z12.31 Encounter for screening mammogram for malignant neoplasm of breast (principal); Z80.3 Family history of malignant neoplasm of breast; R92.323 Mammographic fibroglandular density, bilateral breasts
CPT/HCPCS: 77063; 77067

== ENCOUNTER → 2024-07-02 12:45 | Outpatient (CLI) | payer OTHER, SELFPAY | PROVIDERS: Family Provider Internal Medicine; PCP Internal Medicine; Referring Provider Internal Medicine; Visit Provider Internal Medicine | DX: R20.2 Paresthesia of skin (principal); R20.0 Anesthesia of skin | CPT/HCPCS: 95886; 95910 ==

== ENCOUNTER → 2025-05-05 14:23 | Outpatient (CLI) | payer OTHER, SELFPAY ==
--- NOTE | 2025-05-05 14:24 | DI.RAD.S_ITS ---
PROCEDURE: XR DEXA AXIAL SKELETON INDICATIONS: OSTEOPOROSIS SCREENING COMPARISON: [facility], CR, XR DEXA AXIAL SKELETON, 05/03/2023, 14:19. FINDINGS: Lumbar Spine: Bone mineral density 0.907 (previously 0.943) g/cm2, T score -1.3 (previously -0.7). Left Femoral Neck: Bone mineral density 0.604 (previously 0.658) g/cm2, T score -2.2 (previously -1.7). Left Hip: Bone mineral density 0.801 (previously 0.822) g/cm2, T score -1.2 (previously -1.0). Fracture Risk Calculation (when applicable): 10-year fracture risk of a major osteoporotic fracture 13 percent and of a hip fracture 2.8 percent. (T score greater or equal to -1.0 to: NORMAL) (T score from -1.1 to -2.4: OSTEOPENIA) (T score less than or equal to -2.5: OSTEOPOROSIS) IMPRESSION: Osteopenia--- recommend repeat DEXA in 2-3 years for reassessment. Follow-up guidelines as follows: Osteoporosis: Consider a repeat DEXA and Vertebral Fracture Assessment (VFA) exam in 2 years or sooner if medically necessary, to reassess this patient's status. Osteopenia: Consider a repeat DEXA in 2-3 years to reassess this patient's status, or if there is a new clinical indication. Normal: Consider a repeat DEXA in 5 years or sooner, or if there is a new clinical indication. All treatment decisions require clinical judgment and consideration of individual patient factors, including patient preferences, comorbidities, previous drug use, risk factors not captured in the FRAX model (e.g., frailty, falls, vitamin D deficiency, increased bone turnover, interval significant decline in bone density ) and possible under- or over-estimation of fracture risk by FRAX. In addition, the NOF Guide recommends that FDA-approved medical therapies be considered in postmenopausal women and men age >= 50 years with a: * Hip or vertebral (clinical or morphometric) fracture * T-score of <=-2.5 at the spine or hip * Ten-year fracture probability by FRAX of >= 3% for hip fracture or >=20% for major osteoporotic fracture. Dictated by: Cholo Marcial M.D. on 05/06/2025 at 20:18 Approved by: Cholo Marcial M.D. on 05/06/2025 at 20:21
--- NOTE | 2025-05-05 14:24 | DI.MG.S_ITS ---
MM screening mammo BI: 05/05/2025. BI-RADS: 2 CLINICAL: 69-year old female for bilateral screening mammogram. Tyrer-Cuzick lifetime risk of 9.2%. Current reported family history of breast cancer: mother. PRIOR EXAMS 05/04/2024, 05/03/2023, 04/26/2022, 04/24/2021. MAMMOGRAPHY TECHNIQUE: 2D and 3D (tomosynthesis) digital mammographic views obtained, with additional images as needed for full coverage. Current study was also evaluated with a Computer Aided Detection (CAD) system. DENSITY B. There are scattered areas of fibroglandular density. MAMMOGRAPHY FINDINGS Bilateral: Typically-benign vascular calcifications noted. IMPRESSION: * No evidence of malignancy with benign findings. RECOMMENDATIONS Bilateral * Annual screening mammography. OVERALL ASSESSMENT CATEGORY BI-RADS-2: Benign. The [employer] recommends annual screening mammography beginning at age 40 for women with average risk of breast cancer. ELECTRONICALLY SIGNED: Leoncio Haddad M.D. on 05/06/2025 at 06:47:14 AM PT Interpreting Station ID: [id number]
== END ==
PROVIDERS: Family Provider Internal Medicine; PCP Family Medicine; Referring Provider Family Medicine; Visit Provider Family Medicine
DX: Z12.31 Encounter for screening mammogram for malignant neoplasm of breast (principal); Z80.3 Family history of malignant neoplasm of breast; M85.89 Other specified disorders of bone density and structure, multiple sites; Z78.0 Asymptomatic menopausal state
CPT/HCPCS: 77063; 77067; 77080